=== PATIENT | female | born 1970 | race American Indian/Alaskan Native ===

== ENCOUNTER 2016-10-16 09:32 | Emergency (ER) | payer MEDICARE, MEDICAID ==
[2016-10-16 09:57] VITALS: BP 131/91
--- NOTE | 2016-10-16 10:43 | Emergency Department Report ---
ED General Adult HPI - General Chief complaint: Urogenital-Female Stated complaint: LOWER BACK PAIN/NAUSEA/HIVES Time Seen by Provider: 10/16/16 10:18 Source: patient Mode of arrival: Ambulatory Limitations: No Limitations - History of Present Illness Initial comments: Pt presents with multiple complaints. 1) pruritic rash, primarily on abdomen and arms x 2 days. 2) low back pain, ongoing for months. no injury, numbness, tingling, bowel/ bladder dysfunction, fever, IVDU, hx of ca. 3) lump on L foot 4) nausea for the past few days. No emesis or abdominal pain. -: Gradual, days(s) (3) Location: abdomen Radiation: non-radiation Improves with: none Worsens with: none Associated Symptoms: nausea/vomiting Treatments Prior to Arrival: none - Related Data Previous Rx's Medication Instructions Recorded Last Taken Type Cyclobenzaprine [Flexeril] 10 mg PO TID PRN #15 tablet 10/16/16 Unknown Rx Ondansetron [Zofran ODT TAB] 4 mg PO Q8HR PRN #12 tab.rapdis 10/16/16 Unknown Rx Permethrin 5% [Acticin 5% CREAM] 1 applicatio TP ONCE #1 tube 10/16/16 Unknown Rx Allergies Allergy/AdvReac Type Severity Reaction Status Date / Time codeine AdvReac Vomiting Verified 10/16/16 09:57 NSAIDS (Non-Steroidal AdvReac Unknown Verified 10/16/16 09:57 Anti-Inflamma prednisone AdvReac HEART RACE Verified 10/16/16 09:57 / FLUTTER Sulfa (Sulfonamide AdvReac Rash Verified 10/16/16 09:57 Antibiotics) ED Review of Systems ROS: Stated complaint: LOWER BACK PAIN/NAUSEA/HIVES Other details as noted in HPI Comment: All other systems reviewed and negative Constitutional: denies: chills, fever Eyes: denies: eye pain, eye discharge, vision change ENT: denies: ear pain, throat pain Respiratory: denies: cough, shortness of breath, wheezing Cardiovascular: denies: chest pain, palpitations Endocrine: no symptoms reported Gastrointestinal: nausea. denies: abdominal pain, diarrhea Musculoskeletal: back pain. denies: joint swelling, arthralgia Skin: rash. denies: lesions Neurological: denies: headache, weakness, paresthesias Psychiatric: denies: anxiety, depression Hematological/Lymphatic: denies: easy bleeding, easy bruising ED Past Medical Hx - Past Medical History Hx Hypertension: Yes Hx Diabetes: Yes Hx Asthma: Yes Additional medical history: URTICARIA. SLEEP APNEA. HEART MURMUR - Surgical History Hx Cholecystectomy: Yes Additional Surgical History: GASTRIC BYPASS. . BILATERAL CARPAL TUNNEL RELEASE. LEFT KNEE SURGERY. TUBAL LIGATION - Social History Smoking Status: Current Every Day Smoker Substance Use Type: Alcohol, Marijuana, Prescribed - Medications Home Medications: Home Medications Medication Instructions Recorded Confirmed Last Taken Type Cyclobenzaprine [Flexeril] 10 mg PO TID PRN #15 tablet 10/16/16 Unknown Rx Ondansetron [Zofran ODT TAB] 4 mg PO Q8HR PRN #12 tab.rapdis 10/16/16 Unknown Rx Permethrin 5% [Acticin 5% CREAM] 1 applicatio TP ONCE #1 tube 10/16/16 Unknown Rx ED Physical Exam - General Limitations: No Limitations General appearance: alert, in no apparent distress - Head Head exam: Present: atraumatic, normocephalic - Eye Eye exam: Present: normal appearance, PERRL, EOMI - ENT ENT exam: Present: normal orophraynx, mucous membranes moist - Neck Neck exam: Present: normal inspection. Absent: tenderness, meningismus - Respiratory Respiratory exam: Present: normal lung sounds bilaterally. Absent: respiratory distress, wheezes - Cardiovascular Cardiovascular Exam: Present: regular rate, normal rhythm. Absent: systolic murmur, diastolic murmur, rubs, gallop - GI/Abdominal GI/Abdominal exam: Present: soft, normal bowel sounds. Absent: distended, tenderness, guarding, rebound - Extremities Exam Extremities exam: Present: normal inspection, other (small ganglion cyst to L foot) - Back Exam Back exam: Present: normal inspection, tenderness, muscle spasm, paraspinal tenderness. Absent: CVA tenderness (R), CVA tenderness (L) - Neurological Exam Neurological exam: Present: alert, oriented X3, CN II-XII intact, normal gait, reflexes normal. Absent: motor sensory deficit - Psychiatric Psychiatric exam: Present: normal affect, normal mood - Skin Skin exam: Present: warm, dry, intact, normal color, rash (appears c/w bug bites to abdomen/arms. ? bed bugs) ED Course Vital Signs 10/16/16 09:50 Temperature 98.1 F Pulse Rate 64 Respiratory 18 Rate Blood Pressure 131/91 O2 Sat by Pulse 100 Oximetry - Reevaluation(s) Reevaluation #1: 10/16/16 13:06 NAD, stable for d/c. ED Medical Decision Making - Lab Data Result diagrams: 10/16/16 10:44 10/16/16 10:44 - Medical Decision Making Will treat rash, have her follow up for ganglion cyst. Will give med for low back pain. Labs and UA WNL, will give RX for zofran. Critical care attestation.: If time is entered above; I have spent that time in minutes in the direct care of this critically ill patient, excluding procedure time. ED Disposition Clinical Impression: Rash and nonspecific skin eruption, Ganglion cyst, Nausea Back pain Qualifiers: Back pain location: low back pain Chronicity: chronic Back pain laterality: unspecified Sciatica presence: without sciatica Qualified Code(s): M54.5 - Low back pain; G89.29 - Other chronic pain Disposition: DISCHARGED TO HOME OR SELFCARE Is pt being admited?: No Condition: Good Instructions: Acute Rash (ED), Back Pain (ED) Prescriptions: Cyclobenzaprine [Flexeril] 10 mg PO TID PRN #15 tablet PRN Reason: Muscle Spasm Ondansetron [Zofran ODT TAB] 4 mg PO Q8HR PRN #12 tab.rapdis PRN Reason: Nausea And Vomiting Permethrin 5% [Acticin 5% CREAM] 1 applicatio TP ONCE #1 tube Referrals: ARSH OWENS [Primary Care Provider] - 3-5 Days POORNIMA CASTILLO JR, MD [Staff Physician] - 3-5 Days Time of Disposition: 13:09
[2016-10-16 11:07] LABS: Basophils % (Auto) 0.6 % (0.0-1.8); Eosinophils % (Auto) 3.5 % (0.0-4.3); Hematocrit 39.5 % (30.3-42.9); Mean Corpuscular HGB Conc 33 % (30-34); Mean Corpuscular Hemoglobin 28 pg (28-32); Mean Corpuscular Volume 84 fl (79-97); Platelet Count 210 K/mm3 (140-440); Red Blood Count 4.69 M/mm3 (3.65-5.03); Red Cell Distribution Width 13.8 % (13.2-15.2); White Blood Count 5.4 K/mm3 (4.5-11.0)
[2016-10-16 11:26] LABS: Alanine Aminotransferase 14 units/L (7-56); Albumin 3.7 g/dL (3.9-5); Albumin/Globulin Ratio 1.2 %; Alkaline Phosphatase 63 units/L (35-129); Anion Gap 14 mmol/L; BUN/Creatinine Ratio 15.71; Bilirubin,Total 0.9 mg/dL (0.1-1.2); Blood Urea Nitrogen 11 mg/dL (7-17); Calcium 8.9 mg/dL (8.4-10.2); Carbon Dioxide 29 mmol/L (22-30); Chloride 100.6 mmol/L (98-107); Glucose 104 mg/dL (65-100); Potassium 3.8 mmol/L (3.6-5.0); Sodium 140 mmol/L (137-145); Total Protein 6.9 g/dL (6.3-8.2)
[2016-10-16 11:27] LABS: Bilirubin,Urine NEG (Negative); Blood,Urine NEG (Negative); Ketones,Urine NEG (Negative); Leukocyte Esterase,Urine NEG (Negative); Mucus,Urine 1+ /HPF; Nitrite,Urine NEG (Negative); Protein,Urine <15 mg/dL mg/dL (Negative)
[2016-10-16] MEDS ORDERED: MORPHINE ONE (13:46)
== END 2016-10-16 13:15 | disposition home or self-care (01) ==
LOC: EDSEX → ED 09:32
DX: R21 Rash and other nonspecific skin eruption (principal); M67.40 Ganglion, unspecified site; M54.5 Low back pain; G89.29 Other chronic pain; R11.0 Nausea; I10 Essential (primary) hypertension; E11.9 Type 2 diabetes mellitus without complications; J45.909 Unspecified asthma, uncomplicated; F17.200 Nicotine dependence, unspecified, uncomplicated; F12.10 Cannabis abuse, uncomplicated; Z90.49 Acquired absence of other specified parts of digestive tract; Z98.51 Tubal ligation status; Z88.6 Allergy status to analgesic agent; Z88.2 Allergy status to sulfonamides; Z88.8 Allergy status to other drugs, medicaments and biological substances
CPT/HCPCS: 36415; 80053; 81001; 81025; 85025; 96372; 99283; J2930; J2270